=== PATIENT | female | born 1995 | race Native Hawaiian/Other Pacific Islander ===

== ENCOUNTER 2018-12-16 19:20 | Emergency (ER) | payer OTHER ==
[~2018-12-16] VITALS: Ht 167.6 cm; Wt 54.4 kg
[2018-12-16 21:06] VITALS: BP 130/71; TEMP 97.5
== END 2018-12-16 21:06 | disposition home or self-care (01) ==
LOC: ED 19:20
DX: T78.40XA Allergy, unspecified, initial encounter (principal); L50.0 Allergic urticaria
CPT/HCPCS: 96372; 99283; J0171; J2930; Q0177